=== PATIENT | female | born 1930 | race Caucasian/White ===

== ENCOUNTER 2017-12-10 12:31 | Outpatient (CLI) | payer MEDICARE | END 2017-12-10 23:59 | disposition home or self-care (01) | LOC: CARD DIAG 12:31 | PROVIDERS: ATTEND Family Medicine | DX: I08.0 Rheumatic disorders of both mitral and aortic valves (principal); G45.9 Transient cerebral ischemic attack, unspecified; I10 Essential (primary) hypertension | CPT/HCPCS: 93306 ==